=== PATIENT | female | born 1980 | race Caucasian/White ===

== ENCOUNTER → 2020-10-05 | Outpatient (CLI) | payer SELFPAY ==
[~2020-10-05] MED LIST: IBUP-1022 PO; MAPA500T2 PO; STUACAP PO; TGTSUS3 PO; VITAPRTA PO
== END ==
LOC: M LABSMTC 12:45
PROVIDERS: ATTEND Pediatrics
DX: Z20.828 Contact with and (suspected) exposure to other viral communicable diseases (principal)